=== PATIENT | male | born 1975 | race Caucasian/White ===

== ENCOUNTER 2022-03-22 11:12 | Emergency (ER) | payer SELFPAY ==
[~2022-03-22] VITALS: Ht 154.9 cm; Wt 58.5 kg
[2022-03-22 11:16] VITALS: BP 138/69
--- NOTE | 2022-03-22 11:25 | NUR ---
46 Y/O M BIB SELF C/O DIFICULTY BREATHING TODAY. COMPLAINTS OF COUGH AND SOB. PT USED INHALER TODAY WITH NO RELIEF. AUSCULTATED WHEEZES IN R LUNG, DIMINISHED IN L LUNG. DENIES N/V/D; SKIN IS PINK/WARM/DRY; AAOX4 WITH EVEN AND STEADY GAIT; HR EVEN AND REGULAR; PT DENIES ANY FEVER, CP AT THIS TIME; PATIENT STATES PAIN OF 0/10 AT THIS TIME; VSS; PATIENT POSITIONED FOR COMFORT; HOB ELEVATED; BEDRAILS UP X2; BED DOWN. ER MD MADE AWARE OF PT STATUS. PMH: HTN, ASTHMA, HLD MEDS: ASPIRIN, BISOPROLOL, ATORVASTATIN ALLERGIES: NSAIDS, DIPYRONE
[2022-03-22] MEDS ORDERED: IPRATROPIUM 0.02% 0.5 MG/2.5 ML NEBU INH ONE (11:55)
[2022-03-22] MEDS ORDERED: ALBUTEROL 0.083% 2.5 MG/3 ML NEBU INH ONE (11:55)
[2022-03-22] MEDS ORDERED: predniSONE 20 MG TAB PO ONE (12:10)
--- NOTE | 2022-03-22 12:30 | NUR ---
PT SITTING QUIETLY IN THE BED. NO ACUTE DISTRESS NOTED. WILL CONTINUE TO CLOSELY MONITOR.
[2022-03-22] MEDS ORDERED: ATOR40TA PO (13:49)
[2022-03-22] MEDS ORDERED: ASPI-1749 PO (13:49)
[2022-03-22] MEDS ORDERED: ATRMDI IH (13:49)
[2022-03-22] MEDS ORDERED: BUDE90PO IH (13:49)
[2022-03-22] MEDS ORDERED: BISO5TAB23 PO (13:49)
--- NOTE | 2022-03-22 14:00 | NUR ---
Patient discharged with v/s stable. Written and verbal after care instructions given and explained. Patient alert, oriented and verbalized understanding of instructions. Ambulatory with steady gait. All questions addressed prior to discharge. ID band removed. Patient advised to follow up with PMD. Rx of ASPIRIN, LIPITOR, ATROVENT, BISOPROLOL, BUDESONIDE given. Patient educated on indication of medication including possible reaction and side effects. Opportunity to ask questions provided and answered.
[2022-03-22 14:05] VITALS: BP 138/69
== END 2022-03-22 14:00 | disposition home or self-care (01) ==
LOC: MED 11:12
DX: J45.909 Unspecified asthma, uncomplicated (principal); B34.9 Viral infection, unspecified; I25.2 Old myocardial infarction; I10 Essential (primary) hypertension; Z95.5 Presence of coronary angioplasty implant and graft; Z79.899 Other long term (current) drug therapy; Z79.82 Long term (current) use of aspirin; Z88.8 Allergy status to other drugs, medicaments and biological substances; Z88.6 Allergy status to analgesic agent
CPT/HCPCS: 94640; 99283; J7512; J7613; J7644

== ENCOUNTER 2022-04-08 23:02 | Emergency (ER) | payer MEDICAID ==
[~2022-04-08] VITALS: Ht 165.1 cm; Wt 68.0 kg
[~2022-04-08 23:02] MED LIST: ASPI-1749 PO; ATOR40TA PO; ATRMDI IH; BISO5TAB23 PO; BUDE90PO IH
[2022-04-09 00:04] VITALS: BP 113/59
--- NOTE | 2022-04-09 00:10 | NUR ---
PT AMBULATED TO BED 03
--- NOTE | 2022-04-09 00:27 | NUR ---
ERMD AT BEDSIDE FOR EXAMINATION OF PATIENT
[2022-04-09] MEDS ORDERED: predniSONE 20 MG TAB PO ONE (00:50)
[2022-04-09] MEDS ORDERED: diphenhydrAMINE 50 MG CAP PO ONE (00:50)
[2022-04-09] MEDS ORDERED: BEN50 PO (01:05)
[2022-04-09] MEDS ORDERED: PRED20TA5 PO (01:05)
--- NOTE | 2022-04-09 01:53 | NUR ---
PT UP TO BATHROOM GAIT STEADY. PENDING DC PAPERWORK
[2022-04-09 02:31] VITALS: BP 113/59
--- NOTE | 2022-04-09 02:31 | NUR ---
Patient discharged with v/s stable. Written and verbal after care instructions given and explained. Patient alert, oriented and verbalized understanding of instructions. Ambulatory with steady gait. All questions addressed prior to discharge. ID band removed. Patient advised to follow up with PMD. Rx of DIPHENHYDRAMINE HYDROCHLORID PREDNISONE given. Patient educated on indication of medication including possible reaction and side effects. Opportunity to ask questions provided and answered.
--- NOTE | 2022-04-09 02:38 | NUR ---
The patient's care was reviewed and supervised by Katie Alves RN. Chart checked.
== END 2022-04-09 02:31 | disposition home or self-care (01) ==
LOC: MED 23:02
DX: T78.49XA Other allergy, initial encounter (principal); J45.909 Unspecified asthma, uncomplicated; I25.2 Old myocardial infarction; I10 Essential (primary) hypertension; Z79.899 Other long term (current) drug therapy; Z79.82 Long term (current) use of aspirin; Z88.8 Allergy status to other drugs, medicaments and biological substances; Z88.6 Allergy status to analgesic agent; X58.XXXA Exposure to other specified factors, initial encounter
CPT/HCPCS: 99283; J7512; Q0163

== ENCOUNTER 2022-08-04 17:40 | Emergency (ER) | payer MEDICAID ==
[~2022-08-04] VITALS: Ht 167.6 cm; Wt 74.8 kg
[~2022-08-04 17:40] MED LIST changes: +BEN50 PO; +PRED20TA5 PO
[2022-08-04 19:24] VITALS: BP 111/62
[2022-08-04] MEDS ORDERED: TETRACAINE HCL/PF 0.5% OPTH 4 ML BTL OP ONE (19:50)
[2022-08-04] MEDS ORDERED: FLUORESCEIN OPTH STRIP 1 MG OP ONE (19:50)
[2022-08-04] MEDS ORDERED: PROP15DR OP (21:00)
== END 2022-08-04 23:00 | disposition home or self-care (01) ==
LOC: MED 17:40
DX: H57.89 Other specified disorders of eye and adnexa (principal); J45.909 Unspecified asthma, uncomplicated; I25.2 Old myocardial infarction; I10 Essential (primary) hypertension; Z79.899 Other long term (current) drug therapy; Z79.82 Long term (current) use of aspirin; Z88.8 Allergy status to other drugs, medicaments and biological substances; Z88.6 Allergy status to analgesic agent
CPT/HCPCS: 99283

== ENCOUNTER 2022-10-09 08:34 | Emergency (ER) | payer MEDICAID ==
[~2022-10-09] VITALS: Ht 157.5 cm; Wt 60.9 kg
[~2022-10-09 08:34] MED LIST changes: +PROP15DR OP
[2022-10-09 08:38] VITALS: BP 129/105
--- NOTE | 2022-10-09 08:46 | NUR ---
47 y/o male bib self, c/o sob, sore throat, dry cough and subjective fever at home for 4 days. pt states he has been unable to test for covid. denies nausea, vomiting, diarrhea. skin is pink/warm/dry. a&o x4, hungarian speaking, with even and steady gait. lungs clear bl, heart rate even and regular. pt denies anyone sick in the household with the same symptoms. pt states pain is 4/10, throat pain at this time. vss. patient positioned for comfort. hob elevated. bed down. ermd made aware of pt. pmh: asthma allergy: diphyrone, nsaids med: allergy medication 0600
[2022-10-09] MEDS ORDERED: ALBUTEROL 0.083% 2.5 MG/3 ML NEBU INH ONE (09:05)
--- NOTE | 2022-10-09 09:14 | NUR ---
albuterol tx given at bedside, 100% spo2 prior to tx with lungs clear bl
[2022-10-09] MEDS ORDERED: ALBU0.0912 IH (09:47)
[2022-10-09] MEDS ORDERED: SODI44SP20 NS (09:47)
[2022-10-09] MEDS ORDERED: CETI10TA81 PO (09:47)
--- NOTE | 2022-10-09 10:34 | NUR ---
Strep swabs obtained, handed to CLS at bedside.
[2022-10-09 11:00] VITALS: BP 114/69
--- NOTE | 2022-10-09 11:00 | NUR ---
Patient discharged with v/s stable. Written and verbal after care instructions given. Patient alert, oriented and verbalized understanding of instructions. Ambulatory with steady gait. All questions addressed prior to discharge. ID band removed. Patient advised to follow up with PMD. Rx of Albuterol, Zyrtec and Nasal [place] given. Opportunity to ask questions provided and answered.
--- NOTE | 2022-10-09 11:08 | NUR ---
The patient's care was reviewed and supervised by ED Agency Nurse 8, RN, RN.
== END 2022-10-09 11:00 | disposition home or self-care (01) ==
LOC: MED 08:34
DX: J02.8 Acute pharyngitis due to other specified organisms (principal); I10 Essential (primary) hypertension; J45.909 Unspecified asthma, uncomplicated; I25.10 Atherosclerotic heart disease of native coronary artery without angina pectoris; Z79.899 Other long term (current) drug therapy
CPT/HCPCS: 87081; 94640; 99283; J7613

== ENCOUNTER 2023-10-02 12:00 | Emergency (ER) | payer MEDICAID ==
[~2023-10-02] VITALS: Ht 162.6 cm; Wt 59.9 kg
[~2023-10-02 12:00] MED LIST changes: +ALBU0.0912 IH; +CETI10TA81 PO; +SODI44SP20 NS
[2023-10-02 12:18] VITALS: BP 110/87; PULSE 84; RESP 18; TEMP 97.9; O2SAT 96
[2023-10-02] MEDS ORDERED: LORATADINE 10 MG TAB PO ONE (12:35)
[2023-10-02] MEDS ORDERED: CETI-403 PO (12:42)
[2023-10-02] MEDS ORDERED: FLONAS NS (12:42)
[2023-10-02 12:55] VITALS: BP 110/87; PULSE 84; RESP 18; TEMP 97.9; O2SAT 96
[2023-10-02 13:00] LABS: FLU A ANTIGEN negative (NEGATIVE); FLU B ANTIGEN NEGATIVE (NEGATIVE)
== END 2023-10-02 12:54 | disposition home or self-care (01) ==
LOC: MED 12:00
DX: J31.0 Chronic rhinitis (principal); Z20.822 Contact with and (suspected) exposure to COVID-19; R21 Rash and other nonspecific skin eruption; I11.9 Hypertensive heart disease without heart failure; J45.909 Unspecified asthma, uncomplicated; Z79.899 Other long term (current) drug therapy
CPT/HCPCS: 99283

== ENCOUNTER 2023-10-12 18:42 | Emergency (ER) | payer OTHER ==
[~2023-10-12] VITALS: Ht 157.5 cm; Wt 59.0 kg
[~2023-10-12 18:42] MED LIST changes: +CETI-403 PO; +FLONAS NS
[2023-10-12 18:48] VITALS: BP 109/67; PULSE 87; RESP 15; TEMP 97.8; O2SAT 96
[2023-10-12] MEDS ORDERED: FLUCONAZOLE 100 MG TAB PO ONE (19:10)
[2023-10-12] MEDS ORDERED: BETA1CRE2 TP (19:13)
[2023-10-12] MEDS ORDERED: FLUC150T PO (19:13)
[2023-10-12 19:50] VITALS: BP 109/67; PULSE 87; RESP 15; TEMP 97.8; O2SAT 96
== END 2023-10-12 19:50 | disposition home or self-care (01) ==
LOC: MED 18:42
DX: B35.4 Tinea corporis (principal); J45.909 Unspecified asthma, uncomplicated; I10 Essential (primary) hypertension; I25.2 Old myocardial infarction; Z79.899 Other long term (current) drug therapy; Z79.82 Long term (current) use of aspirin; Z88.8 Allergy status to other drugs, medicaments and biological substances
CPT/HCPCS: 99283; Q0163

== ENCOUNTER 2024-02-18 14:55 | Emergency (ER) | payer OTHER ==
[~2024-02-18] VITALS: Ht 157.5 cm; Wt 60.8 kg
[~2024-02-18 14:55] MED LIST changes: +BETA1CRE2 TP; +FLUC150T PO
[2024-02-18 15:02] VITALS: BP 120/82; PULSE 85; RESP 18; TEMP 97.8; O2SAT 98
[2024-02-18] MEDS ORDERED: FLONAS NS (16:10)
[2024-02-18] MEDS ORDERED: CETI10TA81 PO (16:10)
[2024-02-18] MEDS ORDERED: KETO2CRE3 TP (16:10)
[2024-02-18] MEDS: FLUCONAZOLE 100 MG TAB PO ONE (16:26)
[2024-02-18] MEDS: diphenhydrAMINE 50 MG/ML VIAL IM ONE (16:53)
== END 2024-02-18 16:55 | disposition home or self-care (01) ==
LOC: MED 14:55
DX: J02.9 Acute pharyngitis, unspecified (principal); B35.4 Tinea corporis; J45.909 Unspecified asthma, uncomplicated; I25.2 Old myocardial infarction; I10 Essential (primary) hypertension; Z79.899 Other long term (current) drug therapy; Z79.82 Long term (current) use of aspirin; Z88.8 Allergy status to other drugs, medicaments and biological substances
CPT/HCPCS: 96372; 99283; J1200

== ENCOUNTER 2024-05-02 07:09 | Emergency (ER) | payer OTHER ==
[~2024-05-02] VITALS: Ht 157.5 cm; Wt 59.9 kg
[~2024-05-02 07:09] MED LIST changes: +KETO2CRE3 TP
[2024-05-02 07:31] VITALS: BP 111/53; PULSE 69; RESP 18; TEMP 97.6; O2SAT 97
[2024-05-02] MEDS ORDERED: LORA10TA19 PO (08:37)
[2024-05-02] MEDS ORDERED: PRED20TA5 PO (08:37)
[2024-05-02] MEDS: FAMOTIDINE 20 MG TAB PO ONE (08:38)
[2024-05-02] MEDS: DEXAMETHASONE 10 MG/ML VIAL IM ONE (08:38)
[2024-05-02] MEDS: LORATADINE 10 MG TAB PO ONE (08:40)
[2024-05-02 08:46] VITALS: BP 111/53; PULSE 69; RESP 18; TEMP 97.6; O2SAT 97
== END 2024-05-02 08:45 | disposition home or self-care (01) ==
LOC: MED 07:09
DX: R21 Rash and other nonspecific skin eruption (principal); J02.9 Acute pharyngitis, unspecified; I25.2 Old myocardial infarction; J45.909 Unspecified asthma, uncomplicated; I10 Essential (primary) hypertension; Z86.79 Personal history of other diseases of the circulatory system; Z79.1 Long term (current) use of non-steroidal anti-inflammatories (NSAID); Z79.899 Other long term (current) drug therapy; Z88.6 Allergy status to analgesic agent; Z79.82 Long term (current) use of aspirin; Z88.8 Allergy status to other drugs, medicaments and biological substances
CPT/HCPCS: 36415; 86592; 96372; 99283; J1100

== ENCOUNTER 2024-06-12 19:54 | Inpatient (IN) | payer OTHER ==
[~2024-06-12] VITALS: Ht 157.5 cm; Wt 58.5 kg
[~2024-06-12 19:54] MED LIST changes: +LORA10TA19 PO
[2024-06-12 23:56] VITALS: O2SAT 94
[2024-06-13] MEDS: ALBUTEROL 0.083% 2.5 MG/3 ML NEBU INH ONE (00:03)
[2024-06-13 00:04] VITALS: PULSE 89; RESP 18; O2SAT 99
[2024-06-13 00:11] LABS: BASOPHILS % (AUTO) 0.3 % (0.0-2.0); EOSINOPHILS # (AUTO) 0.1 K/uL (0-0.4); EOSINOPHILS % (AUTO) 0.6 % (0.0-4.0); HEMATOCRIT 36.9 % (36-52); HEMOGLOBIN 12.4 g/dL (12.0-18.0); LYMPHOCYTES % (AUTO) 8.5 % (20.5-51.1); MEAN CORPUSCULAR HEMOGLOBIN 28 pg (27-31); MEAN CORPUSCULAR HGB CONC 34 g/dL (33-37); MEAN CORPUSCULAR VOLUME 84.2 fL (80-94); MONOCYTES % (AUTO) 8.4 % (1.7-9.3); NEUTROPHILS # (AUTO) 10.2 K/uL (1.8-7.7); NEUTROPHILS % (AUTO) 82.2 % (42.2-75.2); PLATELET COUNT (AUTO) 321 K/uL (140-450); RED BLOOD CELL COUNT(AUTO) 4.39 MIL/uL (4.20-6.10); RED CELL DISTRIBUTION WIDTH 13.7 % (11.6-13.7); WHITE BLOOD COUNT (AUTO) 12.3 K/uL (4.8-10.8)
[2024-06-13] MEDS ORDERED: methylPREDNISolone SS 125 MG/2 ML VIAL ONE (00:25)
[2024-06-13] MEDS ORDERED: WATER STERILE 10 ML MC ONE (00:25)
[2024-06-13] MEDS: ACETAMINOPHEN EXTRA STRENGTH 500 MG TAB PO ONE (00:30)
[2024-06-13 00:32] LABS: ANION GAP 15.4 (8-16); CALCIUM 9.1 mg/dL (8.5-10.1); CARBON DIOXIDE 24.5 mmol/L (21-32); POTASSIUM 3.9 mmol/L (3.5-5.1)
[2024-06-13] MEDS: methylPREDNISolone SS 125 MG in WATER STERILE 2 ML IV ONE (00:35)
[2024-06-13] MEDS: LEVOFLOXACIN 500 MG/D5W PREMIX 100 ML IV ONE (01:00)
[2024-06-13] MEDS ORDERED: PIPERACILLIN/TAZOBACTAM 3.375 GM VIAL IV ONE (01:34)
[2024-06-13] MEDS: PIPERACILLIN/TAZOBACTAM 3.375 GM in DEXTROSE 5% 50 ML IV ONE (01:43)
[2024-06-13 03:54] VITALS: O2SAT 99
[2024-06-13] MEDS ORDERED: MAG SULF 2000 MG/WATER PREMIX 50 ML IV PRN (04:50)
[2024-06-13] MEDS ORDERED: ACETAMINOPHEN 325 MG TAB PO PRN (04:50)
[2024-06-13] MEDS ORDERED: HYDROcodone/APAP 5/325 MG 1 TAB TAB PO PRN (04:50)
[2024-06-13] MEDS ORDERED: ALBUTEROL SULFATE/IPRATROPIU 3 ML SOL IH PRN (04:50)
[2024-06-13] MEDS ORDERED: ONDANSETRON 4 MG/2 ML VIAL IVP PRN (04:50)
[2024-06-13] MEDS ORDERED: MORPHINE SULFATE 2 MG/ML SYR IVP PRN (04:50)
[2024-06-13] MEDS ORDERED: MAGNESIUM OXIDE 400 MG TAB PO PRN (04:50)
[2024-06-13] MEDS ORDERED: POTASSIUM CHLORIDE 10 MEQ TABER PO PRN (04:50)
[2024-06-13] MEDS ORDERED: KCL 20 MEQ IN 100 mL PREMIX 200 ML IV PRN (04:50)
[2024-06-13] MEDS ORDERED: AZITHROMYCIN 500 MG in DEXTROSE 5% 250 ML IV SCH (06:00)
[2024-06-13 08:30] VITALS: BP 138/84; PULSE 74; PULSE 83; RESP 18; TEMP 98.1; O2SAT 97
[2024-06-13] MEDS: ENOXAPARIN 40 MG/0.4 ML SYR SUBQ SCH (09:56)
[2024-06-13] MEDS: AZITHROMYCIN 500 MG in DEXTROSE 5% 250 ML IV SCH (11:54)
[2024-06-13 12:00] VITALS: BP 130/71; PULSE 75; PULSE 78; RESP 18; TEMP 97.5; O2SAT 98
[2024-06-13 13:37] LABS: HEMATOCRIT 37.9 % (36-52); HEMOGLOBIN 12.6 g/dL (12.0-18.0); LYMPHOCYTES # (AUTO) 0.7 K/uL (2.0-11.5); LYMPHOCYTES % (AUTO) 6.5 % (20.5-51.1); MEAN CORPUSCULAR HEMOGLOBIN 28 pg (27-31); MEAN CORPUSCULAR HGB CONC 33 g/dL (33-37); MEAN CORPUSCULAR VOLUME 84.2 fL (80-94); MONOCYTES # (AUTO) 0.2 K/uL (0.8-1.0); MONOCYTES % (AUTO) 2.2 % (1.7-9.3); NEUTROPHILS # (AUTO) 9.3 K/uL (1.8-7.7); NEUTROPHILS % (AUTO) 91.3 % (42.2-75.2); PLATELET COUNT (AUTO) 367 K/uL (140-450); WHITE BLOOD COUNT (AUTO) 10.2 K/uL (4.8-10.8)
[2024-06-13 13:45] VITALS: PULSE 74; RESP 18; O2SAT 97
[2024-06-13 14:03] LABS: ALBUMIN 3.3 g/dL (3.4-5.0); ANION GAP 15.5 (8-16); CALCIUM 9.5 mg/dL (8.5-10.1); CARBON DIOXIDE 26.3 mmol/L (21-32); CREATININE 1.2 mg/dL (0.6-1.3); POTASSIUM 3.8 mmol/L (3.5-5.1); TOTAL BILIRUBIN 0.3 mg/dL (0.0-1.0); TOTAL PROTEIN, SERUM 8.3 g/dL (6.4-8.2)
[2024-06-13] MEDS ORDERED: LEVO750T75 PO (15:43)
[2024-06-13 16:00] VITALS: BP 119/69; PULSE 74; PULSE 75; RESP 20; TEMP 96.5; O2SAT 97
[2024-06-13] MEDS ORDERED: MEDS-TO-BEDS MC SCH (21:00)
== END 2024-06-13 18:15 | disposition home or self-care (01) | DRG 137 ==
LOC: MED 19:54 → MTU 06-13 04:47
PROVIDERS: ADMIT Hospitalist; ATTEND Hospitalist
DX: J69.0 Pneumonitis due to inhalation of food and vomit (principal); E44.0 Moderate protein-calorie malnutrition; E87.1 Hypo-osmolality and hyponatremia; D72.829 Elevated white blood cell count, unspecified; I10 Essential (primary) hypertension; J45.909 Unspecified asthma, uncomplicated; Z88.8 Allergy status to other drugs, medicaments and biological substances; Z79.82 Long term (current) use of aspirin; Z79.899 Other long term (current) drug therapy; Z79.51 Long term (current) use of inhaled steroids
CPT/HCPCS: 36415; 71045; 80048; 80053; 85025; 87040; 87081; 96365; 96367; 96375; 99285; J0456; J0696; J1650; J1956; J2543; J2919; J7060; J7613; Q0092